=== PATIENT | female | born 1955 | race Caucasian/White ===

== ENCOUNTER 2016-06-20 14:54 | Emergency (ER) | payer OTHER ==
[~2016-06-20] VITALS: Ht 157.5 cm; Wt 71.5 kg
[2016-06-20] MEDS ORDERED: SODIUM CHLORIDE FLUSH 10 ML SYR IV PRN (15:15)
[2016-06-20] MEDS ORDERED: KETOROLAC 30 MG/ML (TORADOL) 1 ML VIAL IV ONE (15:15)
[2016-06-20] MEDS ORDERED: LORazepam 2 MG/ML (ATIVAN) 1 ML VIAL IV ONE (15:15)
[2016-06-20] MEDS ORDERED: SODIUM CHLORIDE FLUSH 3 ML SYR IV PRN (15:15)
[2016-06-20] MEDS ORDERED: ONDANSETRON 2 MG/ML (Z0FRAN) 2 ML VIAL IV ONE (15:15)
[2016-06-20] MEDS ORDERED: SODIUM CHLORIDE 250 ML IV PRN (15:15)
[2016-06-20 15:24] LABS: BASOPHILS % (AUTO) 1 % (0-2); EOSINOPHILS # (AUTO) 0.2 10^3uL; EOSINOPHILS % (AUTO) 3 % (0-4); MEAN PLATELET VOLUME 10.3 FL (6.0-9.5); MONOCYTES # (AUTO) 0.6 X10^3; MONOCYTES % (AUTO) 10 % (3-11); NEUTROPHILS # (AUTO) 2.8 X10^3; NEUTROPHILS % (AUTO) 50 % (51-67); PLATELET COUNT 205 10^3uL (150-450); WHITE BLOOD COUNT 5.64 10^3uL (4.0-11.0)
[2016-06-20 15:29] LABS: MEAN CORPUSCULAR HEMOGLOBIN 36.8 PG (26.0-34.0); MEAN CORPUSCULAR VOLUME 102 FL (80-100)
[2016-06-20 15:32] LABS: ALBUMIN 4.9 g/dL (3.4-5.0); ALKALINE PHOSPHATASE 104 U/L (38-126); ANION GAP 19.7 MEQ/L (3-15); BUN/CREATININE RATIO 11 (10-20); CALCULATED IONIZED CALCIUM 3.9 mg/dL (3.8-4.6); CREATINE KINASE 116 U/L (30-135); TOTAL PROTEIN 8.5 g/dL (6.4-8.5)
[2016-06-20] MEDS ORDERED: LEVOFLOXACIN 500 MG/100 ML IV 100 ML IV ONE (16:05)
[2016-06-20 17:23] VITALS: BP 167/96
== END 2016-06-20 17:20 | disposition home or self-care (01) ==
LOC: ED 14:57
DX: F41.1 Generalized anxiety disorder (principal); J32.0 Chronic maxillary sinusitis; R79.89 Other specified abnormal findings of blood chemistry
CPT/HCPCS: 36415; 71010; 80053; 82550; 82553; 84484; 85025; 85610; 85730; 93005; 96361; 96365; 96375; 99285; J1885; J1956; J2060; J2405; J7050; 99283

== ENCOUNTER → 2016-07-23 | Outpatient (CLI) | payer OTHER ==
[~2016-07-23] MED LIST: AML2.5T PO; ASPI-345; ASPI-860 PO; ATOR40TA2 PO; ATOR80TA73 PO; BACL10TA PO; CARV25TA30 PO; CLR500T PO; CRV25T; DICY20TA33 PO; GFCD10B GT; HYDR-3702 PO; HYDR50TA77 PO; LEVO500T16 PO; LORA2TAB PO; MONT10TA21 PO; NF-LISIN40; PARO10TA24 PO; ROSU20TA; ROSU20TA PO; ROSU20TA28 PO; SULF-221 PO; lorazepam
--- NOTE | 2016-07-23 12:46 | Diagnostic Imaging Report ---
PROCEDURE: CT sinuses without contrast. TECHNIQUE: Multiple contiguous axial images were obtained through the sinuses without the use of intravenous contrast. Coronal and sagittal reformations were then performed. INDICATION: Chronic sinusitis. COMPARISON: Comparison is limited to routine head CT dated 09/05/2015 and completely includes the paranasal sinuses in the [id number]. FINDINGS: There is very slight leftward bowing of the mid nasal septum, where there is a tiny 1-2 mm septal spur. No abnormal aeration of the nasal turbinates. Floor of the nasal cavity reveals some membrane thickening of about 2.4 mm. There is some membrane thickening along the anteroinferior nasal septum, measuring maximal transverse dimension of 9 mm. The maxillary sinus ostia bilaterally are widely patent and the infundibula appear unremarkable. There is minimal 1-2 mm membrane thickening in the floor of the left maxillary sinus. No paranasal sinus air-fluid level. There is opacification and membrane thickening of few ethmoid air cells bilaterally anteroinferiorly and on the left posterosuperiorly. The sphenoid sinuses are clear. The mastoid air cells are well aerated. The external auditory canals are unremarkable. There is no abnormal tissue or fluid in the middle ear cavities. Scutum appear intact and no destruction or erosion of the tegmen tympani. Orbits are unremarkable. The nasal bones are unremarkable. The frontal sinuses are clear. IMPRESSION: Mild membrane thickening within the nasal cavity, mild leftward nasal septal deviation and a tiny leftward oriented septal spur. Trace membrane thickening in the floor of the left greater than right maxillary sinus, membrane thickening and opacification of few ethmoid air cells. No paranasal sinus air-fluid level. No ostial obstruction or bony destruction. External and middle ears and mastoids appear unremarkable. Dictated by: Dictated on workstation # [id number]
== END ==
LOC: RAD 08:49
PROVIDERS: ATTEND Otolaryngology
DX: J32.0 Chronic maxillary sinusitis (principal); J34.3 Hypertrophy of nasal turbinates; J34.2 Deviated nasal septum
CPT/HCPCS: 70486; 76376

== ENCOUNTER 2016-08-05 12:18 | Emergency (ER) | payer OTHER ==
[~2016-08-05] VITALS: Ht 162.6 cm; Wt 69.3 kg
[2016-08-05] MEDS ORDERED: ONDANSETRON 2 MG/ML (Z0FRAN) 2 ML VIAL IV ONE (12:45)
[2016-08-05] MEDS ORDERED: HYDROmorphone 1 MG/ML (DILAUDID) SYRINGE IV ONE ×2 (12:45→14:25)
[2016-08-05] MEDS ORDERED: KETOROLAC 30 MG/ML (TORADOL) 1 ML VIAL IV ONE (12:45)
[2016-08-05] MEDS ORDERED: SODIUM CHLORIDE FLUSH 3 ML SYR IV ONE (12:45)
[2016-08-05] MEDS ORDERED: LORazepam 2 MG/ML (ATIVAN) 1 ML VIAL IV ONE ×2 (12:45→14:25)
[2016-08-05] MEDS ORDERED: SODIUM CHLORIDE FLUSH 10 ML SYR IV PRN (12:45)
[2016-08-05] MEDS ORDERED: GI COCKTAIL 55 ML UDC PO ONE (13:00)
[2016-08-05] MEDS ORDERED: MAG HYDROX/AL HYDROX/SIMETH 400-400-40/5 ML (MAG-AL PLUS XS) 30 ML UDC ONE ×2 (13:01→13:02)
[2016-08-05] MEDS ORDERED: LIDOCAINE 2% VISCOUS 20ML UDC PO ONE ×3 (13:02→13:20)
[2016-08-05] MEDS ORDERED: BELLADONNA/PHENOBARBITAL ELIXIR (DONNATAL) 10 ML UDC ONE ×2 (13:02→13:13)
[2016-08-05 13:08] LABS: BASOPHILS % (AUTO) 1 % (0-2); EOSINOPHILS # (AUTO) 0.1 10^3uL; EOSINOPHILS % (AUTO) 3 % (0-4); MEAN CORPUSCULAR HGB CONC 34.8 g/dL (31.0-37.0); MEAN PLATELET VOLUME 10.7 FL (6.0-9.5); MONOCYTES # (AUTO) 0.5 X10^3; MONOCYTES % (AUTO) 12 % (3-11); NEUTROPHILS # (AUTO) 2.6 X10^3; NEUTROPHILS % (AUTO) 60 % (51-67); PLATELET COUNT 178 10^3uL (150-450); WHITE BLOOD COUNT 4.36 10^3uL (4.0-11.0)
[2016-08-05] MEDS ORDERED: MAG HYDROX/AL HYDROX/SIMETH 200-200-20/5 ML (MAG-AL PLUS) 30 ML UDC PO ONE ×2 (13:10→13:20)
[2016-08-05 13:11] LABS: MEAN CORPUSCULAR HEMOGLOBIN 35.5 PG (26.0-34.0); MEAN CORPUSCULAR VOLUME 102 FL (80-100)
[2016-08-05] MEDS ORDERED: ONDA4TAB8 PO (13:16)
[2016-08-05 13:21] LABS: ALBUMIN 4.7 g/dL (3.4-5.0); ALKALINE PHOSPHATASE 106 U/L (38-126); AMYLASE* 105 U/L (25-115); ANION GAP 20.5 MEQ/L (3-15); BUN/CREATININE RATIO 12 (10-20); CALCULATED IONIZED CALCIUM 3.9 mg/dL (3.8-4.6); CREATINE KINASE 86 U/L (30-135); LIPASE* 905 U/L (23-300); TOTAL PROTEIN 7.7 g/dL (6.4-8.5)
[2016-08-05 13:30] LABS: CLARITY,URINE Clear; COLOR,URINE Yellow; GLUCOSE, URINE (UA) Negative (Negative); LEUKOCYTE ESTERASE ,URINE Negative (Negative); PH,URINE 5.5 (5.0 - 8.0)
[2016-08-05 13:31] LABS: BILIRUBIN,URINE 1+ (Negative)
--- NOTE | 2016-08-05 13:34 | NUR ---
gi cocktail ordered, red in color, pt states goes into anaphalactic shock if she eats strawberry, called to pharmacy, kit sent up maalox and lidocaine with no color. did not know that donnatol was red, so had to call down to get another dose of maalox and donnatol
[2016-08-05 13:38] LABS: AMPHETAMINE SCREEN, URINE Negative (Negative); CANNABINOID SCREEN, URINE Negative (Negative); METHAMPHETAMINE SCREEN URINE S NEGATIVE (NEGATIVE); OPIATE SCREEN URINE Negative (Negative); PROPOXYPHENE STAT NEGATIVE (NEGATIVE); RBC,URINE 0-2 /HPF; URINE CENTRIFUGED VOLUME <10mL Unspun
--- NOTE | 2016-08-05 13:47 | NUR ---
waiting on giving meds to see if gi cocktail works
[2016-08-05] MEDS ORDERED: NS IV 500 ML 500 ML IV SCH (14:25)
[2016-08-05] MEDS ORDERED: PANTOPRAZOLE IV 40 MG in SODIUM CHLORIDE FLUSH 10 ML IV ONE (14:25)
[2016-08-05] MEDS ORDERED: PROMETHAZINE HCL INJ 12.5 MG in SODIUM CHLORIDE 25 ML IV ONE (14:25)
--- NOTE | 2016-08-05 15:47 | Diagnostic Imaging Report ---
PROCEDURE: CT abdomen and pelvis with contrast. TECHNIQUE: Multiple contiguous axial images were obtained through the abdomen and pelvis after administration of intravenous contrast. INDICATION: Elevated liver enzymes. FINDINGS: There is minimal basilar atelectasis. There is fatty infiltration of the liver. There is no mass. Gallbladder is present and appears normal. The pancreas appears normal. The spleen is not enlarged. Adrenals are normal. Kidneys appear normal. There is calcific atherosclerosis of the aorta but no aneurysm. Urinary bladder is normal. Uterus is surgically absent. There is no intraperitoneal free air or free fluid. Small bowel is not dilated. Colon appears normal. IMPRESSION: Hepatic steatosis. Aortic atherosclerosis. Dictated by: Dictated on workstation # [id number]
[2016-08-05 16:22] VITALS: BP 146/86
[2016-08-10] MEDS ORDERED: FLUT9.9S NS (06:53)
[2016-08-10] MEDS ORDERED: OMEP10SU PO (06:53)
[2016-08-10] MEDS ORDERED: NF-CRES10T PO (06:53)
== END 2016-08-05 16:22 | disposition home or self-care (01) ==
LOC: ED 12:19
DX: K29.70 Gastritis, unspecified, without bleeding (principal); R13.10 Dysphagia, unspecified; K85.90 Acute pancreatitis without necrosis or infection, unspecified; F41.9 Anxiety disorder, unspecified
CPT/HCPCS: 36415; 74022; 74177; 80053; 80307; 81003; 81015; 82150; 82550; 82553; 83605; 83690; 84443; 84484; 85025; 86140; 96361; 96374; 96375; 99284; C9113; J1170; J2060; J2550; J7030; Q9967; 99281

== ENCOUNTER → 2016-08-07 | Outpatient (CLI) | payer OTHER ==
[~2016-08-07] MED LIST changes: +FLUT9.9S NS; +NF-CRES10T PO; +OMEP10SU PO; +ONDA4TAB8 PO
[2016-08-07 12:19] LABS: TOTAL PROTEIN 7.8 g/dL (6.4-8.5)
--- NOTE | 2016-08-07 12:42 | Diagnostic Imaging Report ---
PROCEDURE: US Gallbladder. TECHNIQUE: Multiple real-time grayscale images were obtained over the right upper quadrant in various projections. INDICATION: Dysphagia, epigastric pain, nausea. COMPARISON: Abdominal ultrasound 10/05/2014. DISCUSSION: Sonographic evaluation of the right upper quadrant was performed. The liver parenchyma is diffusely hyperechoic, consistent with fatty infiltration. The liver is normal in size. Benign-appearing cyst within the left hepatic lobe measures 1.2 cm. Findings within the liver are stable. No solid liver mass identified. The main portal vein is normal in caliber with normal hepatopetal blood flow. The gallbladder appears normal without evidence of cholelithiasis, wall thickening, or pericholecystic fluid. No evidence of biliary duct dilatation. The common bile duct is normal measuring 0.1 cm. The pancreas appears normal as visualized. The right kidney appears normal in echotexture and size without evidence of hydronephrosis or renal mass. The right kidney measures 11.4 cm. There is no ascites or abnormal bowel loops identified. No sonographic Young sign was reported. IMPRESSION: 1. Fatty infiltration of the liver, stable. Dictated by: Dictated on workstation # [id number]
== END ==
LOC: RAD 09:22 → ASC 08-10 06:29
PROVIDERS: ATTEND Surgery
DX: R10.13 Epigastric pain (principal); R13.10 Dysphagia, unspecified
CPT/HCPCS: 36415; 76705; 80076; 83690

== ENCOUNTER 2016-08-10 07:15 | Day surgery (SDC) | payer OTHER ==
[~2016-08-10] VITALS: Ht 162.6 cm; Wt 66.4 kg
[2016-08-10 06:36] VITALS: BP 100/76
[~2016-08-10 07:15] MED LIST changes: +LACTATED RINGERS 1,000 ML IV ONE; +LIDOCAINE 4% TOPICAL 4.5 ML SYR ONE; +SIMETHICONE 40 MG/0.6 ML (MYLICON DROPS) ORAL SYRINGE ONE; +SODIUM CHLORIDE FLUSH 3 ML SYR ONE
[2016-08-10] MEDS ORDERED: PROPOFOL 20 ML IV ONE (07:16)
[2016-08-10] MEDS ORDERED: MIDAZOLAM 2 MG/2 ML (VERSED) VIAL ONE (07:16)
[2016-08-10] MEDS ORDERED: ALFENTANIL 500 MCG/ML (ALFENTA) 5 ML AMP IV ONE (07:16)
[2016-08-10 08:00] VITALS: BP 94/56
[2016-08-10 08:23] VITALS: BP 106/70
--- NOTE | 2016-08-10 08:57 | OPERATIVE REPORT ---
DATE OF OPERATION: 08/10/2016 PRE-OPERATIVE DIAGNOSIS: 1. Epigastric and right upper quadrant abdominal pain. 2. Dysphagia. POST-OPERATIVE DIAGNOSIS: 1. Distal gastritis. 2. Reflux esophagitis. OPERATIVE PROCEDURE: Esophagogastroduodenoscopy with biopsies SURGEON: Marcel Jesus MD ANESTHESIA: Monitored anesthesia care FINDINGS: 1. There was some mild eccentricity of the squamocolumnar junction in the distal esophagus. There was no stricture or neoplasia. 2. The distal gastric mucosa was inflamed with possible early ulcer formation noted. Biopsies were obtained for YANNICK and histology. The more proximal stomach appeared normal. 3. The duodenum appeared normal with no inflammation, ulcers or neoplasia. INDICATIONS: The patient is a 60-year-old referred from the ER and Dr. Dove, who is under the care of Dr. Vicente San. She has had ongoing epigastric abdominal pain, along with some component of dysphagia as well. She presents today for upper endoscopy. She does have a history of H. pylori infection per her report. DESCRIPTION OF PROCEDURE: The patient was informed of the risks and benefits and agreed to proceed. Her oropharynx was anesthetized with Xylocaine and a bite block was placed. Sedation was administered. The lighted endoscope was passed down into the esophagus and into the stomach. Air was insufflated. The pylorus was cannulated and the first, second and third portions of the duodenum were visualized. No inflammation or ulcers were seen in the duodenum. The scope was brought back into the stomach where the antrum, body and fundus were carefully inspected. The gastric antrum appeared inflamed, as described. I took pictures and biopsies at that location. The body and fundus appeared more normal without any inflammatory change. Retroflexion revealed a normal cardia with no diaphragmatic hernia. The hiatus was seen at 42 cm, the same location as the squamocolumnar junction. There was some mild irregularity there, but no ulcers, neoplasia or severe inflammation. The distal and proximal esophagus appeared normal throughout. The vocal cords did not appear markedly inflamed. The scope was removed completing the procedure. The patient tolerated the procedure without complications. Pathology is pending.
== END 2016-08-10 08:29 | disposition home or self-care (01) ==
LOC: ASC 07:15
PROVIDERS: ATTEND Surgery
DX: K29.50 Unspecified chronic gastritis without bleeding (principal); K21.0 Gastro-esophageal reflux disease with esophagitis; I10 Essential (primary) hypertension; J45.909 Unspecified asthma, uncomplicated; E78.5 Hyperlipidemia, unspecified; F41.9 Anxiety disorder, unspecified; M19.90 Unspecified osteoarthritis, unspecified site; F17.200 Nicotine dependence, unspecified, uncomplicated; Z79.82 Long term (current) use of aspirin
CPT/HCPCS: 43239; 87077; J2250

== ENCOUNTER → 2016-08-17 | Outpatient (CLI) | payer OTHER ==
[~2016-08-17] MED LIST changes: -LACTATED RINGERS 1,000 ML IV ONE; -LIDOCAINE 4% TOPICAL 4.5 ML SYR ONE; -SIMETHICONE 40 MG/0.6 ML (MYLICON DROPS) ORAL SYRINGE ONE; -SODIUM CHLORIDE FLUSH 3 ML SYR ONE
--- NOTE | 2016-08-18 11:01 | Diagnostic Imaging Report ---
INDICATION: Trouble swallowing solid foods for 2 weeks. EXAMINATION: Esophagram on 08/17/2016. FINDINGS: The paradichlorobenzene machine operator radiograph demonstrates no evidence for acute disease within the chest. No infiltrates or effusions. The heart and pulmonary vasculature appear unremarkable. A single contrast upper GI examination was performed as the patient had difficulty with carbonated beverages. The esophagus demonstrates a Presby-type esophagus with tertiary waves noted, especially distally. However, no obstructive process is seen with no lesions or strictures encountered. A single episode of penetration was witnessed but there was no aspiration. No gastroesophageal hernia is seen. There was no reflux witnessed during the examination. IMPRESSION: 1. Presbyesophagus with no strictures or lesions appreciated. 2. Mild penetration without evidence for aspiration. Clinical correlation is recommended. Dictated by: Dictated on workstation # [id number]
== END ==
LOC: RAD 10:28
PROVIDERS: ATTEND Surgery
DX: R13.10 Dysphagia, unspecified (principal); K22.8 Other specified diseases of esophagus
CPT/HCPCS: 74220